=== PATIENT | female | born 1930 | race Caucasian/White ===

== ENCOUNTER 2017-11-23 11:39 | Day surgery (SDC) | payer MEDICARE ==
[~2017-11-23] VITALS: Ht 162.6 cm; Wt 46.7 kg
[~2017-11-23 11:39] MED LIST: ASPI81 PO; LANO0.2510 PO; RANI150 PO; TAB-TAB PO
[2017-11-23] MEDS ORDERED: IOHEXOL 350 MG/ML 50 ML BTL (for Cath Lab) OTHER ONE (11:40)
[2017-11-23] MEDS ORDERED: SODIUM CHLORID 0.9% 500 ML INJ 1,000 ML IV ONE (12:00)
[2017-11-23] MEDS ORDERED: NEOSTIGMINE 5 MG/5 ML SYRINGE IV PUSH ONE (12:00)
[2017-11-23] MEDS ORDERED: ROCURONIUM INJ 50 MG/5 ML SYRINGE IV PUSH ONE (12:00)
[2017-11-23] MEDS ORDERED: LIDOCAINE HCL 1% PF 5 ML SYRINGE OTHER ONE (12:00)
[2017-11-23] MEDS ORDERED: ePHEDrine/NS 25 MG/5 ML SYRINGE IV ONE (12:00)
[2017-11-23] MEDS ORDERED: PROPOFOL 200 MG/20 ML AMP IV ONE (12:00)
[2017-11-23] MEDS ORDERED: PHENYLEPHRINE HCL 10 MG/ML VIAL IV ONE (12:00)
[2017-11-23] MEDS ORDERED: EPINEPHrine HCL (1:1000) 1 MG/ML VIAL IV ONE (12:00)
[2017-11-23] MEDS ORDERED: GLYCOPYRROLATE 1 MG/5 ML SYRINGE IV PUSH ONE (12:00)
[2017-11-23] MEDS ORDERED: ONDANSETRON HCL 4 MG/2 ML VIAL IV ONE (12:00)
[2017-11-23] MEDS ORDERED: PHENYLEPH/NS 1000 MCG/10 ML SYR IV ONE (12:00)
[2017-11-23] MEDS ORDERED: METOPROLOL TARTRATE 25 MG TAB PO PRN (12:15)
[2017-11-23] MEDS ORDERED: SODIUM CHLORID 0.9% 500 ML IV PRN (12:15)
[2017-11-23] MEDS ORDERED: LORazepam 1 MG TAB SL SCH (12:15)
[2017-11-23] MEDS ORDERED: LACTATED RINGER'S 1000 ML IV PRN (12:15)
[2017-11-23] MEDS ORDERED: POVIDONE IODINE 5% (ANTISEPSIS KIT) 4 APPLICATIONS EACH NARE PRN (12:15)
[2017-11-23] MEDS: SODIUM CHLORID 0.9% 500 ML INJ 500 ML IV SCH (12:15)
[2017-11-23] MEDS ORDERED: CHLORHEXIDINE GLUCONATE 2 % 1 PACK (2 CLOTHS) TOPICAL PRN (12:15)
[2017-11-23] MEDS ORDERED: COQ130CA (12:22)
[2017-11-23] MEDS ORDERED: AMIO200T PO (12:22)
[2017-11-23] MEDS ORDERED: MULT1TAB46 (12:22)
[2017-11-23] MEDS ORDERED: DIGO0.12 PO (12:22)
[2017-11-23] MEDS ORDERED: FURO1TAB62 PO (12:22)
[2017-11-23] MEDS ORDERED: POTA10TA16 PO (12:22)
[2017-11-23] MEDS ORDERED: APIX2.5T PO (12:22)
[2017-11-23 12:34] LABS: AUTOMATED NEUTROPHIL # 2.5 TH/MM3 (1.8-7.7); BASOPHIL % 0.6 % (0.0-2.0); EOSINOPHIL % 0.3 % (0.0-4.0); HEMATOCRIT 44.1 % (35.0-46.0); HEMOGLOBIN 14.3 GM/DL (11.6-15.3); LYMPH % 45.7 % (9.0-44.0); LYMPHOCYTE # 2.8 TH/MM3 (1.0-4.8); MEAN CELL VOLUME 77.8 FL (80.0-100.0); MEAN CORPUSCULAR HEMOGLOBIN 25.3 PG (27.0-34.0); MEAN CORPUSCULAR HGB CONC 32.5 % (32.0-36.0); MONO % 13.4 % (0.0-8.0); MONOCYTE # 0.8 TH/MM3 (0-0.9); PLATELET COUNT 281 TH/MM3 (150-450); RED BLOOD COUNT 5.67 MIL/MM3 (4.00-5.30); RED CELL DISTRIBUTION WIDTH 25.1 % (11.6-17.2); WHITE BLOOD COUNT 6.2 TH/MM3 (4.0-11.0)
[2017-11-23 12:46] LABS: PROTHROMBIN TIME - PATIENT 10.6 SEC (9.8-11.6)
[2017-11-23 12:48] VITALS: BP 126/74; PULSE 86; RESP 18; TEMP 98; O2SAT 98
[2017-11-23 12:48] LABS: BICARBONATE 30.7 MEQ/L (21.0-32.0); CALCIUM 9.5 MG/DL (8.5-10.1); CREATININE 0.69 MG/DL (0.50-1.00)
[2017-11-23] MEDS ORDERED: LEVOFLOXACIN 500 MG PREMIX INJ 100 ML IV ONE (13:00)
[2017-11-23 13:13] LABS: ACANTHOCYTES OCC (NORMAL); OVALOCYTES 1+ (NORMAL); TARGET CELLS 1+ (NORMAL)
[2017-11-23] MEDS ORDERED: HEPARIN-D5W 25,000 U/250 ML 250 ML ONE (15:49)
[2017-11-23] MEDS ORDERED: PROTAMINE SULFATE 50 MG/5 ML VIAL ONE (15:49)
[2017-11-23] MEDS ORDERED: HEPARIN SODIUM - IV 10,000 UNITS/10 ML VIAL ONE (15:50)
[2017-11-23] MEDS ORDERED: VASOPRESSIN 20 UNITS/ML VIAL ONE (17:23)
[2017-11-23] MEDS ORDERED: LIDOCAINE HCL 1% 50 ML VIAL INFIL PRN (18:30)
[2017-11-23] MEDS ORDERED: LORazepam 2 MG/ML VIAL IV PUSH PRN (18:30)
[2017-11-23] MEDS ORDERED: ATROPINE SULFATE 1 MG/ML VIAL IV PUSH PRN (18:30)
[2017-11-23] MEDS ORDERED: BACITRACIN OINT 0.9 GM PKT TOP ONE (18:30)
[2017-11-23] MEDS ORDERED: oxyCODONE/ACETAMINOPHEN 5 MG/325 MG TAB PO PRN ×2 (18:30)
[2017-11-23] MEDS ORDERED: SODIUM CHLOR 0.9% 250 ML INJ 250 ML IV PRN (18:30)
[2017-11-23] MEDS ORDERED: ONDANSETRON HCL 4 MG/2 ML VIAL IV PUSH PRN (18:30)
--- NOTE | 2017-11-23 18:47 | CATHPROC ---
Patient Name: MARKUS MAJANO Study #: [id number] Initial MD: Frandy Benjamin Date of : 1930 Study Date: 11/23/2017 Cardiac Catheterization Report 11/23/2017 6:48:05 PM Financial #: [id number] 1 of 9 Patient Name: MARKUS MAJANO Study #: [id number] Initial MD: Frandy Benjamin Date of : 1930 Study Date: 11/23/2017 Entire Case Report Patient Information Patient Name MARKUS MAJANO Date of 1930 Age 87 years Financial # [id number] Gender F AlternateID Lab Number 2 Room Number DC09 Height (in) 64.0 Height (cm) 162.5 BSA 1.47 Weight (lbs) 102.3 Weight (kg) 46.5 Patient Address/Phone Number Home Address [facility] Home Phone Number [phone] [facility] [id number] Study Information Study Number Admission Scheduled Start Study Start [id number] Nov 23 2017 11:39AM 11/23/2017 Nov 23 2017 3:35PM [place] [facility] Electrophysiology Study Admit Source Facility Department Other [facility] - Portable Track Crew Chief Physician and Clinical Staff Initial Frandy Raphael Curator [facility] Homa Sellers,ORDINARY SEAMAN TECH2 Curator [facility] Cierra Richards RCIS Other Anesthesia, FORM RAISER Recorder Alana Heller RN Recorder Lauren Pardo,ANNI Scrub Davis Jean-Baptiste,RT(R) 11/23/2017 6:48:05 PM Financial #: [id number] 2 of 9 Patient Name: MARKUS MAJANO Study #: [id number] Initial MD: Frandy Benjamin Date of : 1930 Study Date: 11/23/2017 Procedures Performed Procedure Location (Site) Vessel Name Ablation Procedure CRYO Ablation LIPV LIPV CRYO Ablation LSPV LSPV CRYO Ablation RIPV RIPV CRYO Ablation RSPV RSPV ICE CATHETER INSERT RA Atruim Venogram LIPV LIPV Venogram LSPV LSPV Equipment Time Plug Paster Description Size Mfg Part Number Used/Scraped COPILOT VALVE, BLEEDBACK [id number] 16:07 [employer] Used CONTROL *[id number] TRANSDUCER, TRUWAVE [id number] 16:07 HERNANDEZ PATEL * Used W/STOCKCOCK *[id number] NEEDLE, TRANSSEPTAL NR 98 [id number] 16:07 [facility] Used C1 *[id number] COVER, TRANSDUCER CABLE [id number] 16:07 [employer] Used ACUNAV *[id number] 16:07 CONMED LEADWIRE, DEFIBRILLATION PAD 2001M-PC Used SHEATH SET, FR12 CHECK-SHANTANU [id number] 16:07 COOK/PACER FR12 Used 13CM *[id number] 16:07 CORDIS/PACER SHEATH, FR10 YAN 11CM FR 10 Used *[id number] 16:07 MED[employer] PACK, CCL CUSTOM * Used *[id number] 16:07 MEDLINE PACER SHAFFER, LIMB * 2530 *[id number] Used 16:22 [employer] MEDICAL SHEATH, FR5.5 PRELUDE 11CM FR 5 [id number] Used [id number] 16:07 [employer] MEDICAL WIRE, 3MMJ .035 180CM 180CM Used *[id number] 16:07 NAMIC MANIFOLD, 4 PORT * Used *[id number] [id number] 16:07 NAMIC TUBING, HIGH PRESSURE 20" 20" Used *[id number] 16:07 NAMIC TUBING, HIGH PRESSURE 48" 48" Used *7541184 [id number] 16:07 NAMIC TUBING, HIGH PRESSURE 48" 48" Used *9476964 TUBING, PRESSURE INJECTION [id number] 16:07 NAMIC PACER 72" Used 72" *3864286 17:35 [employer] OMNIPAQUE, 350 MG, 150ML 150ML [id number] Used [id number] 16:07 [employer],WARM AIR CCL * Used *[id number] 11/23/2017 6:48:05 PM Financial #: [id number] 3 of 9 Patient Name: MARKUS MAJANO Study #: [id number] Initial MD: Frandy Benjamin Date of : 1930 Study Date: 11/23/2017 [id number] 16:07 [facility] CATHETER, JSN, QUAD FR 5 Used *[id number] 719859 16:07 [facility] MED[employer] CATHETER, JSN, QUAD FR 5 Used *9000799 [id number] 16:07 [employer] MEDICAL ELECTRODE KIT, CRISTEL X SURFACE * Used *5073598 676734 16:07 [facility] [employer] SHEATH, EPS, FR6 FAST CATH FR 6 Used *4849812 16:07 [facility] [employer] SHEATH, EPS, FR7 FAST CATH FR 7 [id number] Used [id number] 16:07 [facility] SHEATH, EPS, FR8 FAST CATH FR 8 Used *[id number] CATHETER, ACUNAV FR10 ICE [id number] 16:57 ELICEO FR 10 Used (ELICEO) *[id number] [facility] PAD, ELECTROSURGICAL 16:07 * [id number] *[id number] Used SURGICAL GROUNDING (BLUE) BALLOON, ARCTIC FRONT [id number] 17:18 [employer] Used ADVANCE 28MM *[id number] SHEATH, FR12 FLEXCATH 16:59 [employer] FR 12 [id number] Used STEERABLE Insurance Information Insurance Payor Private Health Insurance Third Constitution Party Third Constitution Party Number [facility] FHCMCR[facility] History: Allergies Allergy Reaction No Known Allergies History: Risk Factors Family History of Hypertension Dyslipidemia Previous [place] Previous Heart Failure Premature CAD Yes No No No Yes Prior Valve Prior PCI Prior CABG Surgery No No No Cerebrovascular Peripheral Artery Chronic Lung On Dialysis Diabetes Disease Disease Disease No No No No No History: Symptoms/Diagnosis Selection Items CHUN Palpitations SOB Labs 11/23/2017 6:48:05 PM Financial #: [id number] 4 of 9 Patient Name: MARKUS MAJANO Study #: [id number] Initial MD: Frandy Benjamin Date of : 1930 Study Date: 11/23/2017 Hgb (g/dl) Hct (%) WBC (l/cumm) Platelets (thousands) 11.60-17.00 35.00-51.00 4.00-11.00 150.00-450.00 14.3 44.1 6.2 281 Glucose (mg/dl) BUN (mg/dl) Creatinine (mg/dl) BUN:Creatinine (1:x) 74.00-106.00 7.00-18.00 0.50-1.30 10.00-20.00 90 9 0.7 12.9 Na (meq/l) K (meq/l) Ca (mg/dl) 136.00-145.00 3.50-5.10 8.50-10.10 143 3.6 9.5 INR (PTT:PT) 0.90-1.10 1 CPK-MB (ng/ML) 0.50-3.60 Not Drawn Medication Medication Total Dose (Bolus/Oral) Medication Total Dosage/Unit 1% XYLOCAINE 40 mL HEPARIN 5000 units Medications (Bolus/Oral) Medication Time Given Dosage/Unit Administered By Reason 1% XYLOCAINE 11/23/2017 4:43:30 PM 20 mL Frandy Benjamin 20 mL 1% XYLOCAINE given in lab by Frandy Benjamin in Left Groin via Subcutaneous. Ordered by Paramjit Benjamin 1% XYLOCAINE 11/23/2017 4:46:50 PM 20 mL Frandy Benjamin 20 mL 1% XYLOCAINE given in lab by Frandy Benjamin in Right Groin via Subcutaneous. Ordered by Alcon Benjamin. HEPARIN 11/23/2017 5:12:37 PM 2000 units Anesthesia, FORM RAISER 2000 units HEPARIN given in lab by Anesthesia, FORM RAISER via Peripheral IV. Ordered by Frandy Benjamin. HEPARIN 11/23/2017 5:22:27 PM 3000 units Anesthesia, FORM RAISER 3000 units HEPARIN given in lab by Anesthesia, FORM RAISER via Peripheral IV. Ordered by Frandy Benjamin. 11/23/2017 6:48:05 PM Financial #: [id number] of Patient Name: MARKUS MAJANO Study #: [id number] Initial MD: Frandy Benjamin Date of : 1930 Study Date: 8 Medication (Drip) Medication Time Given Dosage/Unit Concentration/Unit Diluent (ml) Solution HEPARIN DRIP 11/23/2017 5:12:52 PM 1000 units/hr 95565 units 250 D5W 1000 units/hr HEPARIN DRIP given in lab by Anesthesia, FORM RAISER via Peripheral IV. Pump/Drip Flow = 10 ml /hr using [place] [address] units in 250 ml. Ordered by Frandy Benjamin. ISUPREL 11/23/2017 6:12:45 PM 20 mcg/min 1 mg 250 NaCl .9 20 mcg/min ISUPREL given in lab by Anesthesia, FORM RAISER via Peripheral IV. Pump/Drip Flow = 300 ml/hr usi ng NaCl .9 with a concentration of 1 mg in 250 ml. Ordered by Frandy Benjamin. Initial Case Assessment Cardiovascular HR Rhythm NIBP Chest Pain 73 NSR 135/68 0 Edema Present Skin color Skin None Normal Warm Dry Circulatory - Right Pulses Dorsalis Pedis Posterior Tibial Femoral 1 1 1 Scale (0,1,2,3,4,d) Circulatory - Left Pulses Dorsalis Pedis Posterior Tibial Femoral 1 1 1 Scale (0,1,2,3,4,d) Circulatory - Lower Extremities Color Lower Right Color Lower Left Normal Normal Neurological State Oriented to time-place- Alert Moves all extremities person Respiration - General Respiration Rate SpO2 (%) (B/min) 15 97 Chronological Log Time Study Chronological Log 15:58:00 Patient arrived via Bed. 15:58:00 Patient Name, D.O.B, / Armband Verified By R.N. 11/23/2017 6:48:05 PM Financial #: [id number] Patient Name: MARKUS MAJANO Study #: [id number] Initial MD: Frandy Benjamin Date of : 1930 Study Date: 11/23/2017 15:58:00 Consent signed by the physician and the patient and verified by the Portable Track Crew Chief staff. 15:58:00 Pre-op and post- op instructions given; patient acknowledges understanding of instructions. Anesthesia at bedside. Assumes care of patient. SEE ANESTH RECORDS FOR ALL MEDICATIONS GIVEN AN D VITALS 15:58:00 FOR PROCEDURE 16:02:12 Presedation assessment performed by Portable Track Crew Chief RN. 16:02:15 Patient has been NPO for More than 6Hrs. 16:02:16 Skin Breakdown-NONE PER PT 16:02:20 Patient Warmer Placed on the Table. 16:02:21 Disposable Defibrillator Pads Placed On Patient. 16:02:21 Joseph Prominences Protected 16:04:44 A # 20 IV was noted in the Forearm (right). Grade = 0 0.9NS INFUSING AT KVO 16:04:45 A # 20 IV was noted in the Forearm (left). Grade = 0 0.9NS INFUSING AT KVO 16:04:46 History and physical on the chart or being dictated. Assessment: Initial Case, HR=73 BPM, Rhythm=NSR, TVNT=416/68 mmhg, Chest Pain=0, Edema=None, Color=Normal, Skin = Warm, Dry Right Pulses: Eder Ped=1, Post Tib=1, Femoral=1 Left Pulses: Eder Ped=1, Post Tib=1, Femoral=1 16:04:49 Lower Right Extremities: Color=Normal Lower Left Extremities: Color=Normal Neurological: State=Alert, Ox3, RODRÍGUEZ Respiration: Resp=15 B/min, SpO2=97 % 16:04:51 Table restraints applied according to hospital policy 16:10:21 Verbal Stimulation=2 Physical Stimulation=2 Airway=2 Respiration=2 TOTAL=8. (0=absent, 1=li mited, 2=present) PT ARRIVED WITH OSWALD CATHETER. CLEAR YELLOW URINE NOTED 16:10:31 500MG LEVAQUIN ADMINISTERED VIA IV IN DOCU FOR OSWALD INSERTION 16:13:26 Bilateral groins prepped with 2% chlorhexidine, and draped after a 3 minute waiting time. 16:21:15 MD paged 16:22:09 MD responded 16:37:53 MD arrived. Time Out. Correct patient, procedure, procedure equipment, site and side verified with physicia n present. Time 16:39:22 concurred by MD, individual staff and FORM RAISER. Time Out #2 - Consents verified, patient in correct position, all results are labled and displa yed, safety precautions 16:39:29 taken, antibiotics administered. Time out concurred by MD, individual staff and FORM RAISER in procedu re 16:40:03 Case Start 16:40:06 KIRILL IN PROGRESS 16:42:25 KIRILL COMPLETE 16:43:30 20 mL 1% XYLOCAINE given in lab by Frandy Benjamin in Left Groin via Subcutaneous. Ordered by Frandy Benjamin. 16:44:44 Vascular access was obtained in the Fem Art (left). 16:45:14 Vascular access was obtained in the Fem Vein (left). 16:45:29 Vascular access was obtained in the Fem Vein (left). 16:45:30 Vascular access was obtained in the Fem Vein (left). 16:46:10 A SHEATH, EPS, FR6 FAST CATH FR 6 was advanced into the Fem Vein (left) using the Modified Seldinger technique. 11/23/2017 6:48:05 PM Financial #: [id number] 7 of 9 Patient Name: MARKUS MAJANO Study #: [id number] Initial MD: Frandy Benjamin Date of : 1930 Study Date: 11/23/2017 16:46:18 A SHEATH, EPS, FR7 FAST CATH FR 7 was advanced into the Fem Vein (left) using the Modified Seldinger technique. 16:46:22 A SHEATH, FR10 YAN 11CM FR 10 was advanced into the Fem Vein (left) using the Modified S eldinger technique. 16:46:34 A SHEATH, FR5.5 PRELUDE 11CM FR 5 was advanced into the Fem Art (left) using the Modified S eldinger technique. 16:46:50 20 mL 1% XYLOCAINE given in lab by Frandy Benjamin in Right Groin via Subcutaneous. Ordered b y Frandy Benjamin. 16:47:00 Vascular access was obtained in the Fem Vein (right). 16:47:09 A SHEATH, EPS, FR8 FAST CATH FR 8 was advanced into the Fem Vein (right) using the Modified Seldinger technique. A CATHETER, JSN, QUAD FR 5 was advanced vis Fem Vein (left) and placed in the HIS. Placement wa s visually 16:54:15 confirmed under fluoroscopy. A CATHETER, JSN, QUAD FR 5 was advanced vis Fem Vein (left) and placed in the CS. Placement was visually 16:55:23 confirmed under fluoroscopy. 16:56:44 CATHETER, ACUNAV FR10 ICE (ELICEO) FR 10 Was Postioned. A SHEATH, FR12 FLEXCATH STEERABLE FR 12 was exchanged in the Fem Vein (right). This was necessa ry in order to 16:57:43 accomodate a larger catheter. 16:59:01 ROXANN NEEDLE INSERTED 17:00:17 A eps was advanced to the right atrium and passed through the septal wall to the left atriu m. 17:00:18 BAYLIS NEEDLE REMOVED 17:12:29 ACT (Normal Range 90-180) = 302 17:12:37 2000 units HEPARIN given in lab by Anesthesia, FORM RAISER via Peripheral IV. Ordered by Paramjit Benjamin nscy. 1000 units/hr HEPARIN DRIP given in lab by Anesthesia, FORM RAISER via Peripheral IV. Pump/Drip Flow = 10 ml/hr using 17:12:52 [place] [address] units in 250 ml. Ordered by Hanscy. Cassidy 17:17:19 A BALLOON, ARCTIC FRONT ADVANCE 28MM was inserted over WIRE, 3MMJ .035 180CM 180CM via the LT. ATRIUM. 17:20:40 ACT (Normal Range 90-180) = 280 17:22:27 3000 units HEPARIN given in lab by Anesthesia, FORM RAISER via Peripheral IV. Ordered by Paramjit Benjamin nscy. 17:27:41 The LSPV was manually injected with 10 cc's of contrast. OMNIPAQUE, 350 MG, 150ML 150ML use d. 17:29:04 Cryo Ablation of the LSPV with a BALLOON, ARCTIC FRONT ADVANCE 28MM. 1ST FREEZE (-51) 180 17:32:09 Cryo Ablation of the LSPV with a BALLOON, ARCTIC FRONT ADVANCE 28MM. 2ND FREEZE (-46) 120 17:36:37 Cryo Ablation of the LIPV with a BALLOON, ARCTIC FRONT ADVANCE 28MM. 1ST FREEZE (-40) 180 17:39:35 Activated Clotting Time Drawn 17:43:26 Cryo Ablation of the LIPV with a BALLOON, ARCTIC FRONT ADVANCE 28MM. 2ND FREEZE (-39) 180 17:45:12 ACT (Normal Range 90-180) = 404 17:45:18 HPERAIN GTT DC'D 17:46:30 The LIPV was manually injected with 10 cc's of contrast. OMNIPAQUE, 350 MG, 150ML 150ML use d. 17:47:17 Cryo Ablation of the LIPV with a BALLOON, ARCTIC FRONT ADVANCE 28MM. 3RD FREEZE (-48) 180 17:52:06 Cryo Ablation of the RIPV with a BALLOON, ARCTIC FRONT ADVANCE 28MM. 1ST FREEZE (-57) 150 17:57:29 Cryo Ablation of the RIPV with a BALLOON, ARCTIC FRONT ADVANCE 28MM. 2ND FREEZE 18:03:48 Cryo Ablation of the RSPV with a BALLOON, ARCTIC FRONT ADVANCE 28MM. 1ST FREEZE 18:09:26 Cryo Ablation of the RSPV with a BALLOON, ARCTIC FRONT ADVANCE 28MM. 2ND FREEZE 20 mcg/min ISUPREL given in lab by Anesthesia, FORM RAISER via Peripheral IV. Pump/Drip Flow = 300 ml/ hr using NaCl .9 18:12:45 with a concentration of 1 mg in 250 ml. Ordered by Frandy Benjamin. 11/23/2017 6:48:05 PM Financial #: [id number] 8 of 9 Patient Name: MARKUS MAJANO Study #: [id number] Initial MD: Frandy Benjamin Date of : 1930 Study Date: 11/23/2017 A SHEATH SET, FR12 CHECK-SHANTANU 13CM FR12 was exchanged in the Fem Vein (right). This was necessa ry in order to 18:27:17 minimize site leakage. 18:43:46 ACT (Normal Range 90-180) = 112 18:44:17 Catheter(s) removed without difficulty Sheath removed; pressure applied to access site. 12F FAROOQ MANUAL HOLD 18:44:20 LEFT SIDE ARTERY AND VIENS CLOSED WITH VASCADE 18:44:52 Case End 18:44:53 Sterile dressing applied to site 18:44:53 No case complications noted. 18:44:54 Cine recording checked. 18:44:55 Bedside Report will be given. 18:44:59 PACU called. Spoke to ZO 18:45:03 Defibrillator and ground pads removed. Skin intact. 18:46:50 Patient moved to stretcher 18:47:34 Ablation procedure performed: AFIB. 18:47:41 EP Procedure was performed. CRYO ABLATION End Study - Contrast Media Used In Study Contrast Total Opened (mL) Total Used (mL) Total Wasted (mL) Unspecified 0 0 0 End Study - Maximum Contrast Load Max Contrast Load (mL) 332.1 End Study - Radiation Exposure Fluoro Time (minutes) 12.1 End Study - Patient Disposition Complications Transferred To Interventional Outcome No Telemetry Bed successful 11/23/2017 6:48:05 PM Financial #: [id number]
[2017-11-23] MEDS ORDERED: DO NOT ADM ANY ANTICOAGULANT DRUGS PRN (19:25)
[2017-11-23 20:00] VITALS: PULSE 80
[2017-11-23 20:15] VITALS: BP 131/73; PULSE 81; RESP 16; O2SAT 92
[2017-11-23 21:00] VITALS: PULSE 78
[2017-11-23 22:00] VITALS: PULSE 78
[2017-11-23 23:00] VITALS: PULSE 80
[2017-11-23] MEDS: APIXABAN 2.5 MG TABLET PO SCH (23:47)
[2017-11-23] MEDS: FUROSEMIDE 20 MG TAB PO SCH (23:47)
[2017-11-23] MEDS: AMIODARONE 200 MG TAB PO SCH (23:47)
[2017-11-24] VITALS: BP 105/55; PULSE 80; PULSE 81; RESP 16; O2SAT 97
[2017-11-24 01:00] VITALS: PULSE 76
[2017-11-24 02:00] VITALS: PULSE 78
[2017-11-24 03:00] VITALS: PULSE 78
[2017-11-24] MEDS: SODIUM CHLORID 0.9% 500 ML INJ 500 ML IV SCH (03:00)
[2017-11-24 04:20] VITALS: BP 93/51; PULSE 78; PULSE 79; RESP 16; O2SAT 98
[2017-11-24 06:13] LABS: INTERNATIONAL NORMALIZED RATIO 1.1 RATIO; PROTHROMBIN TIME - PATIENT 11.3 SEC (9.8-11.6)
[2017-11-24 08:00] VITALS: BP 90/36; PULSE 79; RESP 16; TEMP 98.4; O2SAT 97
[2017-11-24] MEDS ORDERED: POTASSIUM CHLORIDE 10 MEQ CONTROLLED RELEASE TAB PO SCH (09:00)
[2017-11-24] MEDS: APIXABAN 2.5 MG TABLET PO SCH (09:10)
[2017-11-24] MEDS: AMIODARONE 200 MG TAB PO SCH (09:10)
[2017-11-24] MEDS: FUROSEMIDE 20 MG TAB PO SCH (09:12)
--- NOTE | 2017-11-24 14:14 | HHI.PR ---
Subjective Remarks Feeling goo Objective Vital Signs Date Time Temp Pulse Resp B/P (MAP) Pulse Ox O2 Delivery O2 Flow Rate FiO2 11/24/17 08:00 98.4 79 16 90/36 (54) 97 11/24/17 04:20 78 16 93/51 (65) 98 11/24/17 04:20 79 11/24/17 03:00 78 11/24/17 02:00 78 11/24/17 01:00 76 11/24/17 00:00 81 16 105/55 (72) 97 11/24/17 00:00 81 11/24/17 00:00 80 11/23/17 23:00 80 11/23/17 22:00 78 11/23/17 21:00 78 11/23/17 20:15 81 16 131/73 (92) 92 11/23/17 20:00 97.4 80 16 135/63 (87) 100 Nasal Cannula 2 11/23/17 20:00 80 11/23/17 19:45 91 14 152/74 (100) 99 Nasal Cannula 2 11/23/17 19:30 84 17 133/66 (88) 100 Nasal Cannula 2 11/23/17 19:25 85 16 145/74 (97) 100 Nasal Cannula 2 11/23/17 19:20 97.6 85 14 142/77 (98) 100 Nasal Cannula 2 I/O 11/23/17 11/23/17 11/23/17 11/24/17 11/24/17 11/24/17 07:00 15:00 23:00 07:00 15:00 23:00 Intake Total 750 ml 720 ml Output Total 110 ml 1025 ml Balance 640 ml -305 ml Intake Oral 720 ml Other 750 ml Output Urine Total 1025 ml Estimated Blood Loss 10 ml Other 100 ml Result Diagram: 11/23/17 1210 11/23/17 1210 Imaging Alert, fully oriented Lungs: ventilated Heart: S1, S2 regular, no gallop Abdomen: soft, pbese, no mass Ext: no edema Current Medications Medications (Trade) Dose Ordered Sig/Mabel Route Start Time Stop Time Status Last Admin Sodium Chloride 500 ml @ 30 mls/hr [id number] IV 11/23/17 12:15 (Ativan) 1 mg RECORDS MANAGEMENT TECHNICIAN SL 11/23/17 12:15 11/26/17 12:14 Lactated Ringer's 1,000 ml @ 30 mls/hr Q24H PRN IV 11/23/17 12:15 11/26/17 12:14 Sodium Chloride 500 ml @ 30 mls/hr [id number] PRN IV 11/23/17 12:15 11/26/17 12:14 (Lopressor) 25 mg RECORDS MANAGEMENT TECHNICIAN PRN PO 11/23/17 12:15 11/26/17 12:14 11/24/17 09:10 (Betadine 5% Antisepsis Kit) 1 applic RECORDS MANAGEMENT TECHNICIAN PRN EACH NARE 11/23/17 12:15 11/26/17 12:14 (Chlorhexidine 2% Cloth) 3 pack RECORDS MANAGEMENT TECHNICIAN PRN TOPICAL 11/23/17 12:15 11/26/17 12:14 (Percocet 5-325 Mg) 1 tab Q4H PRN PO 11/23/17 18:30 (Percocet 5-325 Mg) 2 tab Q4H PRN PO 11/23/17 18:30 (Ativan Inj) 0.5 mg UNSCH PRN IV PUSH 11/23/17 18:30 11/24/17 18:29 (Atropine Inj) 0.5 mg UNSCH PRN IV PUSH 11/23/17 18:30 Sodium Chloride 250 ml @ 500 mls/hr ONCE PRN IV 11/23/17 18:30 11/24/17 18:29 (Zofran Inj) 4 mg Q4H PRN IV PUSH 11/23/17 18:30 (Xylocaine 1% Inj (50 ml)) 10 ml UNSCH PRN INFIL 11/23/17 18:30 11/24/17 18:29 (Cordarone) 200 mg BID PO 11/23/17 21:00 11/24/17 09:10 (Eliquis) 2.5 mg BID PO 11/23/17 21:00 11/24/17 09:10 (Lasix) 20 mg DAILY@0900,1800 PO 11/23/17 19:00 11/24/17 09:12 (KCl) 10 meq DAILY PO 11/24/17 09:00 11/24/17 09:10 ([facility] ALL NURSING DEPARTME... UNSCH PRN .XX 11/23/17 19:25 11/24/17 19:24 Assessment and Plan Problem List: (1) Atrial fibrillation ICD Codes: I48.91 - Unspecified atrial fibrillation Plan: In sinus rhythm SP ablation doing well Will be DH Follow up in 3 weeks or as previously scheduled Frandy Benjamin MD November 24, 2017 14:14
--- NOTE | 2017-11-24 20:03 | EKG ---
Date Performed: 11/23/2017 Time Performed: 12:27:02 PTAGE: 87 years EKG: Sinus rhythm with PAC(s). rSr'(V1) - probable normal variant Extensive ST-T changes are nonspecific Since the pre vious tracing, no significant change noted Borderline ECG NO PREVIOUS TRACING DOCTOR: Dawit Whittington Interpretating Date/Time 11/24/2017 16:46:32
--- NOTE | 2017-11-24 20:06 | EKG ---
Date Performed: 11/23/2017 Time Performed: 19:39:18 PTAGE: 87 years EKG: Sinus rhythm POSSIBLE RIGHT VENTRICULAR CONDUCTION DELAY ST DEVIATION AND MODERATE T-WAVE ABNORMALITY, CONSIDER A NTERIOR ISCHEMIA ABNORMAL ECG Since the PREVIOUS TRACING , no significant change noted PREVIOUS TRACIN11/23/2017 12.27 DOCTOR: Dawit Whittington Interpretating Date/Time 11/24/2017 16:46:44
--- NOTE | 2017-11-24 20:09 | EKG ---
Date Performed: 11/24/2017 Time Performed: 04:51:24 PTAGE: 87 years EKG: Sinus rhythm with PAC(s) rSr'(V1) - probable normal variant Extensive ST-T changes are nonspecific Low QRS voltag es in limb leads Since the previous tracing, no significant change noted Borderline ECG PREVIOUS TRACING : 11/23/2017 19.39 DOCTOR: Dawit Whittington Interpretating Date/Time 11/24/2017 16:46:53
--- NOTE | 2017-11-28 17:59 | PD.CARD ---
Atrial Fibrillation Cryo Study PROCEDURE DATE: November 23, 2017 PROCEDURE PERFORMED Electrophysiology study, CS cannulation, 3-D mapping, transeptal approach, right and left heart catheterization, cryoablation of atrial fibrillation, pulmonary vein isolation, posterior ablation, anterior ablation, repeat electrophysiology study on Isuprel infusion, intracardiac echo. Very complex case. INDICATIONS FOR PROCEDURE Ms. Valentin is a 87-year-old female with atrial fibrillation, on multiple medications, on anticoagulation, referred for electrophysiology study and ablation. The risks, the nature and the benefit of the procedure are clearly stated to her. The risks include pneumothorax, cardiac perforation, stroke, need for open heart surgery and even . The patient understood and agreed to proceed. PROCEDURE As written informed consent was obtained prior to esophageal echo, the patient was kept on the table where she was prepped and draped in the usual sterile fashion. Conscious sedation was initiated and throughout the procedure by the anesthesiologist. Once sedation was verified, the right and left inguinal area was anesthetized with 2% Xylocaine. Using modified Seldinger technique, the left femoral vein was cannulated on three occasions and three guidewires were advanced over the wire, one 6, one 7, and one 10-[place] Hema[place] were advanced. Then the left femoral artery was done on one occasion, one guidewire was advanced over the wire. A 4-[place] Hemaquet was advanced. Then the right femoral vein was cannulated on one occasion and one guidewire was advanced over the wire. An 8-[place] Hemaquet was advanced. Then under fluoroscopic guidance through the 6 and 7-[place] H[place], two 5- [place] curved quadripolar electrophysiology catheters were advanced and positioned on the His as well as coronary sinus. The patient was in sinus rhythm. Basic interval was measured. They were all within normal limits. Then through the 10-[place] Hema[place], a [employer] AcuNav intracardiac echo catheter was advanced and placed at the right atrium. Multiple views were obtained. There was no pericardial effusion. Pulmonary vein was seen. The atrial septum was visualized. Then the 8-[place] H[place] in the right femoral vein was exchanged for an Agilis transseptal sheath that was placed all the way to the superior vena cava. Through this sheath a [place] needle was advanced. Then the sheath, the dilator and the needle were pulled back progressively until foci engaged. Once the needle was advanced, RF was delivered for 2 seconds. I was able to cross into the left atrium. Once the needle was crossed, the dilator was advanced. Once the dilator was crossed, the sheath was advanced. Once the sheath crossed , the dilator and needle were removed. An intracardiac echo showed the sheath in good position. The patient already received 10,000 units of heparin. The goal is to get an ACT around 360 during the ablation. Through this sheath a [employer] 20-pole circumferential catheter was advanced. Using Pylba endocardial solution mapping system a three-dimensional configuration of the left atrium was obtained. Points were taken at the left superior and inferior vein, right superior and inferior vein, mitral valve, and appendage. Then at this point I decided to proceed with cryoablation. The circumferential catheter was removed. Through the sheath a 0.035 wire was advanced. I did exchange the Agilis sheath for a [employer] flex sheath. I decided to use a 28mm balloon. The balloon was advanced over the wire. First I did engage the left superior vein. The balloon was inflated, complete occlusion obtained. CryoEnergy was delivered for 3 and 3 minutes. Temperature reached -52. Then I did engage the left inferior vein, occlusion obtained. Venography showed complete occlusion and CryoEnergy was delivered for 3 and 3 minutes. Temperature was around -48 to -50. Then the right inferior was engaged, complete occlusion obtained. Temperature reach -48 for 3 and 3 minutes. Then the right superior was engaged. Before CryoEnergy of the right veins, the His catheter was placed at the left and the right subclavian. Phrenic nerve pacing was performed. There was diaphragmatic stimulation. That is going to be used for phrenic nerve monitoring during cryoablation. I did cryoablate the right superior vein. There was no loss of phrenic nerve movement , diaphragmatic movement. Phrenic nerve was intact. The temperature dropped to -50 for 3 and 3 minutes. At that point I removed the balloon. The circumferential catheter was advanced into the veins. There were no signal into the veins. Pacing from the vein showed no conduction to the atrium. Pacing from the atrium showed no conduction to the veins. The patient at this point received Isuprel infusion for over 10 minutes at 20mcg. No tachyarrhythmia was induced, no conduction resumed. Post-Isuprel no conduction resumed either. At that point the procedure was complete. All catheters were removed, the transeptal sheath was exchanged for a 12-[place] Hemaquet. Intracardiac echo showed pericardial effusion, still good flow in the pulmonary vein. No incident reported. The patient tolerated the procedure. Blood loss minimal. 1. Electrocardiogram: At baseline the patient was in sinus. Postprocedure the patient in sinus. 2. Basic Interval: Base cycle length was around 840 milliseconds. 3. Tachyarrhythmia: Atrial fibrillation was mapped and ablated. Ablation was successful. CONCLUSION Successful electrophysiology study, mapping and cryoablation of atrial fibrillation, pulmonary vein isolation, posterior and anterior wall ablation, repeat electrophysiology study on Isuprel infusion. COMMENT AND RECOMMENDATIONS The patient is going to be transferred to the telemetry unit, will be observed, and when stable can be discharged home. Frandy Benjamin MD November 28, 2017 17:59
== END 2017-11-24 15:52 | disposition home or self-care (01) ==
LOC: HDOC 11:39 → HDIC 11:39 → HCIS 20:34 → HDOC 11-24 15:52
PROVIDERS: ATTEND Internal Medicine Interventional Cardiology
DX: I48.91 Unspecified atrial fibrillation (principal); Z01.818 Encounter for other preprocedural examination; Z01.810 Encounter for preprocedural cardiovascular examination
CPT/HCPCS: 00537; 80048; 85002; 85025; 85610; 85730; 86850; 86900; 86901; 93005; 93312; 93320; 93325; 93613; 93623; 93656; 93662; C1730; C1731; C1732; C1733; C1759; C1760; C1766; G0269; J0171; J1644; J1956; J2370; J2405; J2710; J2720; J3010; J7040; Q9967